=== PATIENT | female | born 2000 | race Two or more races ===

== ENCOUNTER 2020-11-14 18:57 | Emergency (ER) | payer BC ==
[~2020-11-14] VITALS: Ht 160 cm; Wt 49.9 kg
== END 2020-11-14 20:40 | disposition home or self-care (01) ==
LOC: ER 18:57
DX: S01.82XA Laceration with foreign body of other part of head, initial encounter (principal); V19.9XXA Pedal cyclist (driver) (passenger) injured in unspecified traffic accident, initial encounter; Y93.89 Activity, other specified; Y92.89 Other specified places as the place of occurrence of the external cause; Y99.8 Other external cause status

== ENCOUNTER → 2020-11-23 | Emergency (ER) | payer BC ==
[~2020-11-23] VITALS: Ht 160 cm; Wt 45.4 kg
== END | disposition left against medical advice (07) ==
LOC: ER 14:27
DX: Z53.20 Procedure and treatment not carried out because of patient's decision for unspecified reasons (principal)

== ENCOUNTER → 2020-11-24 | Emergency (ER) | payer BC ==
[~2020-11-24] VITALS: Ht 160 cm; Wt 45.4 kg
== END | disposition home or self-care (01) ==
LOC: ER 13:12
DX: Z48.02 Encounter for removal of sutures (principal)

== ENCOUNTER → 2021-01-18 | Emergency (ER) | payer BC ==
[~2021-01-18] VITALS: Ht 160 cm; Wt 47.2 kg
[~2021-01-18] MED LIST: DICLOFENAC SODI75 MG PO; NORFLEX100MG PO
== END | disposition home or self-care (01) ==
LOC: ER 16:43
DX: M54.5 Low back pain (principal)